=== PATIENT | female | born 1990 | race African-American/Black ===

== ENCOUNTER 2018-08-01 09:11 | Emergency (ER) | payer MEDICAID, OTHER ==
[~2018-08-01] VITALS: Ht 149.9 cm; Wt 68.2 kg
[~2018-08-01 09:11] MED LIST: ALBU8HFA IH; CITA10TA68 PO; MVITFE PO; QUET50TA PO
[2018-08-01 09:45] VITALS: BP 119/62
[2018-08-01] MEDS ORDERED: ARIP10TA8 PO (09:58)
[2018-08-01] MEDS ORDERED: HYDR-4031 PO (09:58)
== END 2018-08-01 11:49 | disposition home or self-care (01) ==
LOC: EMS 09:12
DX: M25.562 Pain in left knee (principal); F20.9 Schizophrenia, unspecified; F17.210 Nicotine dependence, cigarettes, uncomplicated; F12.90 Cannabis use, unspecified, uncomplicated; F15.90 Other stimulant use, unspecified, uncomplicated; Z79.899 Other long term (current) drug therapy; Z91.013 Allergy to seafood
CPT/HCPCS: 99406

== ENCOUNTER 2019-12-28 21:19 | Inpatient (IN) | payer MEDICAID, OTHER ==
[~2019-12-28] VITALS: Ht 154.9 cm; Wt 72.7 kg
[~2019-12-28 21:19] MED LIST changes: +ARIP10TA8 PO; -CITA10TA68 PO; +HYDR-4031 PO; -MVITFE PO; -QUET50TA PO
[2019-12-29] MEDS ORDERED: HALOPERIDOL 5 MG TABLET PO PRN (01:15)
[2019-12-29] MEDS ORDERED: LORazepam 2 MG TABLET PO PRN (01:15)
[2019-12-29] MEDS ORDERED: ZOLPIDEM TARTRATE 10 MG TABLET PO PRN (01:15)
[2019-12-29 03:45] VITALS: BP 137/92
[2019-12-29] MEDS ORDERED: CloNIDine HCL 0.1 MG TABLET PO PRN (08:30)
[2019-12-29] MEDS ORDERED: ACETAMINOPHEN 325 MG TABLET PO PRN (08:30)
[2019-12-29] MEDS ORDERED: IBUPROFEN 400 MG TABLET PO PRN (08:30)
[2019-12-29] MEDS ORDERED: GuaiFENesin/D-METHORPHAN [SUGAR-FREE] 200-20MG/10 ML SYRUP UDCUP PO PRN (08:30)
[2019-12-29] MEDS ORDERED: ALBUTEROL SULFATE HFA 90 MCG/PUFF 8 GM INHALER IH PRN (08:30)
[2019-12-29] MEDS ORDERED: LOPERAMIDE HCL 2 MG CAPSULE PO PRN (08:30)
[2019-12-29] MEDS ORDERED: MAG HYDROX/AL HYDROX/SIMETH ES 30 ML SUSPENSION UDCUP PO PRN (08:30)
[2019-12-29] MEDS ORDERED: MAGNESIUM HYDROXIDE SUSPENSION 30 ML UDCUP PO PRN (08:30)
[2019-12-29] MEDS ORDERED: DOCUSATE SODIUM 100 MG CAPSULE PO PRN (08:30)
[2019-12-29] MEDS ORDERED: ONDANSETRON HCL 4 MG TABLET PO PRN (08:30)
[2019-12-29] MEDS ORDERED: PETROLATUM,WHITE 28 GM JELLY TP PRN (08:30)
[2019-12-29] MEDS ORDERED: NICOTINE 14 MG/24 HOUR PATCH TD PRN (08:30)
[2019-12-29 08:35] VITALS: BP 110/61
[2019-12-29 16:26] VITALS: BP 124/78
[2019-12-29] MEDS: OLANZapine 5 MG TABLET PO SCH (16:45)
[2019-12-30 04:23] VITALS: BP 120/68
[2019-12-30] MEDS: OLANZapine 5 MG TABLET PO SCH ×2 (08:50→16:23)
[2019-12-30 09:46] VITALS: BP 111/70
[2019-12-31 05:46] VITALS: BP 100/67
[2019-12-31] MEDS: OLANZapine 5 MG TABLET PO SCH ×2 (08:29→16:26)
[2019-12-31 10:34] VITALS: BP 111/70
[2019-12-31 16:28] VITALS: BP 101/65
[2020-01-01 05:06] VITALS: BP 97/64
[2020-01-01 08:09] LABS: CHOL/HDL RATIO 3.2 (3.9-5.7)
[2020-01-01] MEDS: OLANZapine 5 MG TABLET PO SCH ×2 (09:07→16:36)
[2020-01-01 17:21] VITALS: BP 108/70
[2020-01-02 02:29] VITALS: BP 102/76
[2020-01-02 08:00] VITALS: BP 114/80
[2020-01-02] MEDS: OLANZapine 5 MG TABLET PO SCH (09:02)
[2020-01-02] MEDS ORDERED: OLAN5TAB2 PO (12:13)
== END 2020-01-02 15:45 | disposition home or self-care (01) | DRG 885 ==
LOC: EMS 21:20 → B3A 12-29 01:10
PROVIDERS: ADMIT Psychiatry & Neurology Psychiatry; ATTEND Psychiatry & Neurology Psychiatry
DX: F20.0 Paranoid schizophrenia (principal); F12.90 Cannabis use, unspecified, uncomplicated; E03.9 Hypothyroidism, unspecified; F17.210 Nicotine dependence, cigarettes, uncomplicated; D64.9 Anemia, unspecified; I10 Essential (primary) hypertension; J45.909 Unspecified asthma, uncomplicated